=== PATIENT | male | born 1970 | race Caucasian/White ===

== ENCOUNTER 2021-04-29 13:18 | Emergency (ER) | payer OTHER ==
[~2021-04-29] VITALS: Ht 170.2 cm; Wt 72.0 kg
[2021-04-29] MEDS ORDERED: IOHEXOL 300 MG/ML 75 ML VIAL. IV ONE (14:30)
--- NOTE | 2021-04-29 14:34 | PHYS DOC ---
Past History Past Surgical History: No Surgical History General Adult EDM: Chief Complaint: ABDOMINAL PAIN HPI: HPI: Patient is a 51-year-old male coming in for left mid abdominal pain started yesterday. Patient states the pain is intermittent and cramping. Patient st ates he has a history of kidney stones but that this pain does not radiate to the flank. Says he has noticed that his urine has been darker recently but denies any dysuria or systemic complaints. Patient is a history of constipation, last bowel movement earlier today. Review of Systems: Review of Systems: All other systems within normal limits except for as noted in the HPI Allergies: Allergies: Allergies Coded Allergies Type Severity Reaction Last Updated Verified No Known Drug Allergies 04/29/21 No Physical Exam: PE: Constitutional: Well developed, well nourished, no acute distress, non-toxic appearance. [] HENT: Normocephalic, atraumatic, bilateral external ears normal, nose normal. [] Eyes: PERRLA, conjunctiva normal, no discharge. [] Neck: No rigidity, supple, no stridor. [] Cardiovascular: Regular rate and rhythm, brisk cap refill [] Lungs & Thorax: Non labored symmetric respirations, no tachypnea or respiratory distress [] Abdomen: Soft, nondistended, tenderness without guarding to left abdomen next to umbilicus. Skin: Warm, dry, no erythema, no rash. [] Back: Unremarkable Extremities: No deformities, range of motion grossly intact, no lower extremity edema [] Neurologic: Alert and oriented X 3, no focal deficits noted. [] Psychologic: Affect normal, judgement normal, mood normal. [] Current Patient Data: Vital Signs: Vital Signs Date Time Temp Pulse Resp B/P (MAP) Pulse Ox O2 Delivery O2 Flow Rate FiO2 04/29/21 13:28 97.7 88 18 128/72 (90) 100 Room Air EKG: EKG: [] Radiology/Procedures: Radiology/Procedures: [address] [address] IMAGING REPORT Signed PATIENT: ELIEZER REAGAN ACCOUNT: [id number] : 1970 LOCATION: ER AGE: 51 SEX: M EXAM STATUS: REG ER ORD. PHYSICIAN: DAYRON CASANOVA MD REASON: LLQ pain- CONTRAST ORDERED PROCEDURE: CT ABD PELV W/ IV CONTRST ONLY CT ABDOMEN+PELVIS W History: Reason: LLQ pain- CONTRAST ORDERED / Spl. Instructions: / History: Technique: After the administration of intravenous contrast, CT imaging was performed of the abdomen and pelvis. Multiplanar images are reviewed. Exposure: One or more of the following individualized dose reduction techniques were utilized for this examination: 1. Automated exposure control 2. Adjustment of the mA and/or kV according to patient size 3. Use of iterative reconstruction technique. Comparison: None Findings: Lower chest: No consolidation or pleural effusion. Abdomen and pelvis: The liver, spleen, adrenal glands, gallbladder and pancreas are unremarkable. No biliary ductal dilatation. Mild left hydronephrosis. Left urothelial thickening. Mild periureteral edema. 4 mm left distal ureteral obstructing calculus (series 2 image 65). Decompressed urinary bladder. No right hydronephrosis. Nonobstructing left intrarenal calculi largest measures 6 oh meters. Colonic diverticulosis. Normal appendix. No evidence of bowel obstruction. No pathologic lymphadenopathy. No ascites. Small fat-containing umbilical hernia. Bones: L5-S1 degenerative disc changes. Impression: 1. 4 mm left distal ureteral obstructing calculus contributing to mild left hydronephrosis. 2. Additional nonobstructing left intrarenal calculi. Electronically signed by: Sharif Vale DO (04/29/2021 3:29 PM) [facility] DICTATED AND SIGNED BY: SHARIF VALE DO DATE: 04/29/21 1522 CC: DAYRON CASANOVA MD; [facility] ~MTH0 0 [] Heart Score: C/O Chest Pain: No Risk Factors: Risk Factors: DM, Current or recent (<one month) smoker, HTN, HLP, family history of CAD, obesity. Risk Scores: Score 0 - 3: 2.5% MACE over next 6 weeks - Discharge Home Score 4 - 6: 20.3% MACE over next 6 weeks - Admit for Clinical Observation Score 7 - 10: 72.7% MACE over next 6 weeks - Early Invasive Strategies Course & Med Decision Making: Course & Med Decision Making Pertinent Labs and Imaging studies reviewed. (See chart for details) [] Draglinda Disclaimer: Dragon Disclaimer: This electronic medical record was generated, in whole or in part, using a voice recognition dictation system. Departure Departure: Impression: Primary Impression: Kidney stone on left side Disposition: 01 HOME / SELF CARE / HOMELESS Condition: STABLE Referrals: DARWIN CRYSTAL (PCP) Patient Instructions: Kidney Stones Scripts Ondansetron (ONDANSETRON ODT) 4 Mg Tab.rapdis 1 TAB PO PRN Q6-8HRS PRN for NAUSEA, #10 TAB Prov: DAYRON CASANOVA MD 04/29/21 Tramadol Hcl (TRAMADOL HCL) 100 Mg Tbmp.24hr 1 TAB PO PRN Q6-8HRS PRN for PAIN MDD 1 Tablet(s) for 5 Days, #10 TAB 0 Refills Prov: DAYRON CASANOVA MD 04/29/21 Ibuprofen (IBUPROFEN) 800 Mg Tablet 1 TAB PO TID for pain, #30 TAB Prov: DAYRON CASANOVA MD 04/29/21 Tamsulosin Hcl (FLOMAX) 0.4 Mg Cap.er.24h 1 CAP PO DAILY for stone for 10 Days, #10 CAP 11 Refills Prov: DAYRON CASANOVA MD 04/29/21 DAYRON CASANOVA MD Apr 29, 2021 14:34
[2021-04-29 14:54] LABS: BASO % 0 % (0-3); EOS % 0 % (0-3); HEMATOCRIT 47.8 % (39.0-53.0); HEMOGLOBIN 15.8 g/dL (13.0-17.5); LYMPH # 1.3 x10^3/uL (1.0-4.8); LYMPH % 13 % (24-48); MEAN CORPUSCULAR HEMOGLOBIN 30 pg (25-35); MEAN CORPUSCULAR HGB CONC 33 g/dL (31-37); MEAN CORPUSCULAR VOLUME 90 fL (79-100); MONO # 0.6 x10^3/uL (0.0-1.1); MONO % 6 % (0-9); NEUT # 7.7 x10^3uL (1.8-7.7); NEUT % 80 % (31-73); PLATELET COUNT 198 x10^3/uL (140-400); RED BLOOD COUNT 5.31 x10^6/uL (4.30-5.70); RED CELL DISTRIBUTION WIDTH 13.7 % (11.5-14.5); WHITE BLOOD COUNT 9.6 x10^3/uL (4.0-11.0)
[2021-04-29 15:00] LABS: CALCIUM 9.4 mg/dL (8.5-10.1); CREATININE 1.1 mg/dL (0.7-1.3); POTASSIUM 3.7 mmol/L (3.5-5.1)
[2021-04-29 15:06] LABS: ALBUMIN 4.2 g/dL (3.4-5.0); ALBUMIN/GLOBULIN RATIO 1.1 (1.0-1.7); TOTAL BILIRUBIN 0.6 mg/dL (0.2-1.0)
[2021-04-29 15:19] LABS: CLARITY,URINE TURBID; COLOR,URINE BROWN; RBC,URINE TNTC /HPF (0-2)
[2021-04-29 15:20] LABS: BACTERIA,URINE 0 /HPF (0-FEW); SQUAMOUS EPITHELIAL CELL,UR FEW /LPF; YEAST,URINE PRESENT /HPF
--- NOTE | 2021-04-29 15:32 | RAD ---
CT ABDOMEN+PELVIS W History: Reason: LLQ pain- CONTRAST ORDERED / Spl. Instructions: / History: Technique: After the administration of intravenous contrast, CT imaging was performed of the abdomen and pelvis. Multiplanar images are reviewed. Exposure: One or more of the following individualized dose reduction techniques were utilized for thi s examination: 1. Automated exposure control 2. Adjustment of the mA and/or kV according to patient size 3. Use of iterative reconstruction technique. Comparison: None Findings: Lower chest: No consolidation or pleural effusion. Abdomen and pelvis: The liver, spleen, adrenal glands, gallbladder and pancreas are unremarkable. No biliary ductal dilatation. Mild left hydronephrosis. Left urothelial thickening. Mild periureteral edema. 4 mm left distal urete ral obstructing calculus (series 2 image 65). Decompressed urinary bladder. No right hydronephrosis. Nonobstructing left intrarenal calculi largest measures 6 oh meters. Colonic diverticulosis. Normal appendix. No evidence of bowel obstruction. No pathologic lymphadenopa thy. No ascites. Small fat-containing umbilical hernia. Bones: L5-S1 degenerative disc changes. Impression: 1. 4 mm left distal ureteral obstructing calculus contributing to mild left hydronephrosis. 2. Additional nonobstructing left intrarenal calculi. Electronically signed by: Sharif Vale DO (04/29/2021 3:29 PM) [facility]
[2021-04-29] MEDS ORDERED: TRAM100T2 PO (15:50)
[2021-04-29] MEDS ORDERED: IBUP800T19 PO (15:50)
[2021-04-29] MEDS ORDERED: TAMS0.4C97 PO (15:50)
[2021-04-29] MEDS ORDERED: ONDA4TAB12 PO (15:50)
[2021-04-29 16:00] VITALS: BP 130/70
== END 2021-04-29 16:12 | disposition home or self-care (01) ==
LOC: ER 13:18
DX: N13.2 Hydronephrosis with renal and ureteral calculous obstruction (principal); Z87.442 Personal history of urinary calculi
CPT/HCPCS: 36415; 74177; 80053; 81001; 83690; 85025; 99285; Q9967